=== PATIENT | male | born 1955 | race Caucasian/White ===

== ENCOUNTER 2025-03-23 20:00 | Observation (INO) ==
[2025-03-23 20:34] LABS: Hematocrit (blood only) 44.9 % (42.0-52.0); Hemoglobin 15.3 g/dl (14.0-18.0); Immature Granulocytes # (auto) 0.04 K/uL (0.01-0.20); Immature Granulocytes % (auto) 0.4 %; Mean Corpuscular Hemoglobin 30.4 pg (25.0-34.0); Mean Corpuscular Volume 89.1 fL (80.0-100.0); Platelet Count 283 K/uL (130-400); RDW Standard Deviation 41.7 fL (36.4-46.3); Red Blood Count 5.04 M/uL (4.70-6.10); White Blood Count 10.08 K/ul (4.8-10.8)
[2025-03-23 20:52] LABS: Alanine Aminotransferase 52.0 U/L (7-52); Albumin Globulin Ratio 1.4 (0.9-2); Alkaline Phosphatase 69.0 U/L (34-104); Anion Gap 8.0 (3-11); Bilirubin,Total 0.3 mg/dl (0.2-1.0); Blood Urea Nitrogen 26.0 mg/dl (6-23); Calcium 9.6 mg/dl (8.6-10.3); Carbon Dioxide 28.0 mmol/L (21-32); Chloride 104.0 mmol/L (98-107); Creatinine Clr Calc Pharmacy 61.7 ml/min; Globulin 3.1 gm/dl (2.5-4.0); Glucose 106.0 mg/dl (70-99(Fasting)); Lipase 44.0 U/L (11-82); Potassium 3.6 mmol/L (3.5-5.1); Sodium 140.0 mmol/L (136-145); Total Protein 7.4 gm/dl (6.0-8.3)
--- NOTE | 2025-03-23 20:58 | XRay Report ---
EXAM: X-ray chest one-view portable CLINICAL HISTORY: Chest pain PRIORS: None TECHNIQUE: Frontal view chest FINDINGS: The chest is well-expanded. No airspace consolidation, effusion or congestive changes. Heart size is normal. No pneumothorax. Trachea is patent. Osseous structures demonstrate no acute abnormality. No radiopaque foreign body. IMPRESSION: No plain film evidence of an acute cardiopulmonary process. Electronically signed by Elsa Suarez 03-23-2025 8:58 PM
--- NOTE | 2025-03-23 23:37 | History & Physical Report ---
Date of Service March 23, 2025 Assessment & Plan (1) Chest pain: Plan: Assessment and plan below following discussion of case with ED provider and reviewing patient history/pertinent normal/abnormal diagnostic test results. Chest pain Possibly from uncontrolled HTN Rule out ACS History of CAD status post stent hyperlipidemia, on statin Rx prediabetes OBS PCU Facilitate nighttime amlodipine. Continue a.m. losartan. Add hydralazine to regimen if uncontrolled. (Beta-bautista medication held in the past due to bradycardia as per patient.) Follow troponin TTE, cardiology consult re: chest pain, history of CAD N.p.o. in anticipation of ischemic workup Update lipid profile and hemoglobin A1c DVT prophylaxis. Lovenox subcu Full code Patient requesting updates providers. Ms. Luz Marina Fuchs, contact #[phone]. Text document was generated using [employer] voice recognition software. It may contain grammatical or spelling errors. Kindly contact undersigned for clarification of any documentation item in question. History of Present Illness Chief Complaint: Chest pain Primary Care Provider: Dr. De La Cruz from [place], [place] (PCP) Dr. Ma from [place], [place] (account strategist) History obtained from patient, family, and records. Medical history significant for CAD status post stents x 7 (first 2015, most recent 2019), hypertension, hyperlipidemia, prediabetes. Patient relocated back to [place] from [place] last July,. Patient yet to establish care with local providers. Last night, patient experienced left shoulder pain going to his chest with some SOB. No cough symptoms. Different from heart attack. No headache symptoms. Compliant with home medications. No unusual stress. Patient does not check blood pressure at home. No concerns on recent outpatient follow-up with [place] account strategist this year. SBP 190s upon arrival at the ER. Medical History as above Surgical History : Appendectomy Family History : Heart disease Personal/Social history : Non-smoker, no EtOH intake Allergies Allergy/AdvReac Type Severity Reaction Status Date / Time No Known Allergies Allergy Unverified 03/23/25 22:09 Home Medications Medication Instructions Recorded Confirmed Type amlodipine 10 mg tablet 10 mg PO QPM 03/23/25 03/23/25 History aspirin 81 mg tablet 81 mg PO QPM 03/23/25 03/23/25 History atorvastatin 80 mg tablet 80 mg PO QPM 03/23/25 03/23/25 History hydrochlorothiazide 25 mg tablet 25 mg PO BID 03/23/25 03/23/25 History losartan 100 mg tablet 100 mg PO QAM 03/23/25 03/23/25 History Past Med/Surg History Problem List (Updated 03/24/25 @ 11:13 by Ady Ramos DO) Dyslipidemia HTN (hypertension) Chest pain (Acute) Social History Smoking Status: Former smoker Smoking End Date: 20 years ago; Second Hand Exposure: No; Hx Alcohol Use: Yes Alcohol type: hard liquor Hx Substance Use: No Preferred Language: Icelandic Communication Ability: Effective Disease Education Specialist Required: No Beliefs That Will Affect Care: None Current Living Situation: Spouse Current Living Situation Comment: wifes at home with Feels Safe at Home: Yes Safety Concerns: Feels Safe At This Time Assistive Devices: Denture - Upper, Denture - Lower and Glasses Review of Systems Review of Systems: As per HPI, all other systems reviewed and negative Physical Exam Physical Exam: GENERAL: Comfortable, pleasant, morbidly obese, no respiratory distress SKIN: Normal color, warm HEENT: [place] palpebral conjunctivae, no ptosis, moist buccal mucosa NECK : Supple, short neck, no tenderness CHEST : CTA, no tenderness HEART : RRR, no obvious murmurs ABDOMEN: Some distention, nontender EXTREMITIES : Minimal LE swelling, no LE tenderness, palpable pulses, no other conspicuous deformities noted NEUROLOGIC : Coherent, no facial asymmetry, no other gross focality Results & Data Results & Data Vital Signs (Past 12 Hours) Vital Signs Pulse Pulse Resp BP BP Pulse Ox O2 Del Method 03/23/25 23:33 65 16 170/82 H 96 03/23/25 22:00 63 16 156/85 H 94 Room Air 03/23/25 21:01 68 H 165/96 H 96 Room Air 03/23/25 20:25 74 16 95 Room Air 03/23/25 20:16 16 196/94 H 95 Room Air 03/23/25 20:16 95 Room Air 03/23/25 20:16 79 18 196/94 H 95 Room Air 03/23/25 20:14 74 Laboratory Results Laboratory Results WBC 10.08 K/ul (4.8-10.8) 03/23/25 20:16 RBC 5.04 M/uL (4.70-6.10) 03/23/25 20:16 Hgb 15.3 g/dl (14.0-18.0) 03/23/25 20:16 Hct 44.9 % (42.0-52.0) 03/23/25 20:16 MCV 89.1 fL (80.0-100.0) 03/23/25 20:16 MCH 30.4 pg (25.0-34.0) 03/23/25 20:16 MCHC 34.1 g/dL (32.0-36.0) 03/23/25 20:16 RDW Std Deviation 41.7 fL (36.4-46.3) 03/23/25 20:16 RDW Coeff of John 12.8 % (11.5-14.5) 03/23/25 20:16 Plt Count 283 K/uL (130-400) 03/23/25 20:16 MPV 10.0 fL (9.4-12.4) 03/23/25 20:16 Immature Gran % (Auto) 0.4 % 03/23/25 20:16 Neut % (Auto) 56.0 % 03/23/25 20:16 Lymph % (Auto) 26.4 % 03/23/25 20:16 [place] % (Auto) 14.4 % 03/23/25 20:16 Eos % (Auto) 2.0 % 03/23/25 20:16 Baso % (Auto) 0.8 % 03/23/25 20:16 Neut # (Auto) 5.65 K/uL (1.40-6.50) 03/23/25 20:16 Lymph # (Auto) 2.66 K/uL (1.20-3.40) 03/23/25 20:16 [place] # (Auto) 1.45 K/uL (0.11-0.59) H 03/23/25 20:16 Eos # (Auto) 0.20 K/uL (0.00-0.50) 03/23/25 20:16 Baso # (Auto) 0.08 K/uL (0.00-0.20) 03/23/25 20:16 Immature Gran # (Auto) 0.04 K/uL (0.01-0.20) 03/23/25 20:16 Sodium 140 mmol/L (136-145) 03/23/25 20:16 Potassium 3.6 mmol/L (3.5-5.1) 03/23/25 20:16 Chloride 104 mmol/L (98-107) 03/23/25 20:16 Carbon Dioxide 28 mmol/L (21-32) 03/23/25 20:16 Anion Gap 8 (3-11) 03/23/25 20:16 BUN 26 mg/dl (6-23) H 03/23/25 20:16 Creatinine 1.35 mg/dl (0.6-1.4) 03/23/25 20:16 Est Cr Clr Drug Dosing 61.7 ml/min 03/23/25 20:16 eGFR 56.13 03/23/25 20:16 BUN/Creatinine Ratio 19.3 (10-20) 03/23/25 20:16 Glucose 106 mg/dl (70-99(Fasting)) H 03/23/25 20:16 Calcium 9.6 mg/dl (8.6-10.3) 03/23/25 20:16 Total Bilirubin 0.3 mg/dl (0.2-1.0) 03/23/25 20:16 AST 26 U/L (13-39) 03/23/25 20:16 ALT 52 U/L (7-52) 03/23/25 20:16 Alkaline Phosphatase 69 U/L (34-104) 03/23/25 20:16 Troponin I High Sens 9.0 pg/ml (0-20) 03/23/25 20:16 Total Protein 7.4 gm/dl (6.0-8.3) 03/23/25 20:16 Albumin 4.3 gm/dl (3.4-5.0) 03/23/25 20:16 Globulin 3.1 gm/dl (2.5-4.0) 03/23/25 20:16 Albumin/Globulin Ratio 1.4 (0.9-2) 03/23/25 20:16 Lipase 44 U/L (11-82) 03/23/25 20:16 Impressions Chest X-Ray 03/23/25 20:09 EXAM: X-ray chest one-view portable CLINICAL HISTORY: Chest pain PRIORS: None TECHNIQUE: Frontal view chest FINDINGS: The chest is well-expanded. No airspace consolidation, effusion or congestive changes. Heart size is normal. No pneumothorax. Trachea is patent. Osseous structures demonstrate no acute abnormality. No radiopaque foreign body. IMPRESSION: No plain film evidence of an acute cardiopulmonary process. Electronically signed by Elsa Suarez 03-23-2025 8:58 PM Diagnostic Findings EKG as per my interpretation :Rate 70, NSR, normal axis, LVH, T wave abnormaliti es inferior leads, PVCs (1) Chest pain Chest pain type: chest pain due to myocardial ischemia Ischemic chest pain type: unspecified angina pectoris type Qualified Code(s): I25.9 - Chronic ischemic heart disease, unspecified
[2025-03-23] MEDS ORDERED: NITROGLYCERIN SL 0.4 MG/TAB TAB SL PRN (23:40)
[2025-03-23] MEDS ORDERED: LORazepam 0.5 MG TAB PO PRN (23:40)
[2025-03-23] MEDS ORDERED: PROMETHAZINE 6.25 MG/50.25 ML BAG IV PRN (23:40)
[2025-03-23] MEDS ORDERED: MoRPHine SULFATE 4 MG/ML 1 ML CARP\\VIAL IV PRN (23:40)
--- NOTE | 2025-03-23 23:45 | Emergency Department Note ---
Impression & Plan Chest pain ED Provider Note NAME: AIME JOHNSTON AGE: 69 SEX: M : 1955 ARRIVES VIA: Walk-In INFORMANT: Patient, ED PROVIDER(S): Hector Prakash MD CHIEF COMPLAINT: Chest pain HPI: This is a 68-year-old male presenting for chest pain. For chest pain. Patient notes he back pain for the past 1 week. Over the past 1 day has progressed to back and chest pain at this time. Today the pain worsened in severity as well as going down his left arm. He states that this now reminded him of his previous STEMI. He has had 7 total stents in his heart. He had 1 heart attack and multiple visits to cardiology where they kept finding new lesions. He reports no fainting, leg pain, swelling, arm pain. No nausea, vomiting. No diaphoresis. ROS: See above HPI for pertinent positives & negatives. A total of 10 systems reviewed and were otherwise negative. PAST MEDICAL HISTORY: See Below PAST SURGICAL HISTORY: See Below FAMILY HISTORY: See Below SOCIAL HISTORY: See Below HOME MEDICATIONS: See Below ALLERGIES: See Below VITALS: See Below PHYSICAL EXAMINATION: General: resting comfortably in no acute distress Head: Normocephalic and atraumatic Eyes: Normal inspection, extraocular muscles intact Ear, nose, throat: Normal external exam Neck: Normal range of motion Respiratory: lungs clear to auscultation bilaterally Cardiovascular: Regular rate/rhythm, no murmur GI: soft, nontender, no guarding or rebound Extremities: nontender, moves all extremities Neuro: The patient awake and alert, appropriately conversive, no focal deficits, symmetric faces Skin: Warm, dry, and intact MEDICAL DECISION MAKING: This is a 69-year-old male presenting for chest/back pain. He has having cardiac history and patient tells me his pain feels similar to previous heart conditions. Will do screening ACS workup. No hypoxia or tachycardia at this time. Low concern for PE clinically. - ECG independently interpreted by me with normal sinus rhythm, occasional PVC, rate of 69, normal AL, normal QRS, normal QTc, no ST segment elevations consistent with STEMI criteria - Chest Xray independently interpreted by me showing no pneumothorax, focal opacity, or pleural effusions. - Bloodwork is reviewed showing no significant leukocytosis, anemia, electrolyte or creatinine abnormality. Negative troponin - With patient's continued chest pain, will admit the patient at this time for high risk chest pain. Care discussed with Dr. Catheirne for admission Differential diagnosis: ACS, PE, muscle skeletal injury, costochondritis, pneumonia Independent History obtained from: Diagnostics interpreted by me: ECG: See above Cardiac Monitoring: An order was placed for continuous cardiac monitoring. The monitor shows a rate of 61 with sinus Past Med/Surg History Problem List (Updated 03/24/25 @ 00:58 by Hector Prakash MD) Chest pain (Acute) Social History Smoking Status: Never smoker Feels Safe at Home: Yes Allergies Allergies Allergy/AdvReac Type Severity Reaction Status Date / Time No Known Allergies Allergy Unverified 03/23/25 22:09 Home Meds Home Medications Medication Instructions Recorded Confirmed amlodipine 10 mg tablet 10 mg PO QPM 03/23/25 03/23/25 aspirin 81 mg tablet 81 mg PO QPM 03/23/25 03/23/25 atorvastatin 80 mg tablet 80 mg PO QPM 03/23/25 03/23/25 hydrochlorothiazide 25 mg tablet 25 mg PO BID 03/23/25 03/23/25 losartan 100 mg tablet 100 mg PO QAM 03/23/25 03/23/25 Results & Data (ED) Vital Signs Vital Signs - 24 hr 03/23/25 20:14 03/23/25 20:16 03/23/25 20:16 Pulse Rate 74 79 Pulse Rate [Right Finger] Respiratory Rate 18 Respiratory Effort / Characteristics Non-Labored Respiratory Depth Normal Respiratory Pattern Regular Blood Pressure 196/94 H Blood Pressure [Right Arm] Blood Pressure Mean 128 Blood Pressure Mean [Right Arm] Pulse Oximetry 95 95 Oxygen Delivery Method Room Air Room Air Sepsis Recent Fever Within 48 Hours No Sepsis New/Unexplained Change in Mental Status No Sepsis Action Taken by Nursing No Action Required 03/23/25 20:16 03/23/25 20:25 03/23/25 21:01 Pulse Rate 74 Pulse Rate [Right Finger] Respiratory Rate 16 16 68 H Respiratory Effort / Characteristics Respiratory Depth Normal Respiratory Pattern Blood Pressure Blood Pressure [Right Arm] 196/94 H 165/96 H Blood Pressure Mean Blood Pressure Mean [Right Arm] 128 119 Pulse Oximetry 95 95 96 Oxygen Delivery Method Room Air Room Air Room Air Sepsis Recent Fever Within 48 Hours Sepsis New/Unexplained Change in Mental Status Sepsis Action Taken by Nursing 03/23/25 22:00 03/23/25 23:33 03/24/25 00:53 Pulse Rate Pulse Rate [Right Finger] 63 65 61 Respiratory Rate 16 16 16 Respiratory Effort / Characteristics Respiratory Depth Normal Normal Respiratory Pattern Blood Pressure Blood Pressure [Right Arm] 156/85 H 170/82 H 172/86 H Blood Pressure Mean Blood Pressure Mean [Right Arm] 108 111 114 Pulse Oximetry 94 96 95 Oxygen Delivery Method Room Air Room Air Sepsis Recent Fever Within 48 Hours Sepsis New/Unexplained Change in Mental Status Sepsis Action Taken by Nursing Laboratory Data 03/23/25 20:16 03/23/25 20:16 Lab Results 03/23/25 03/23/25 Range/Units 20:16 23:00 WBC 10.08 (4.8-10.8) K/ul RBC 5.04 (4.70-6.10) M/uL Hgb 15.3 (14.0-18.0) g/dl Hct 44.9 (42.0-52.0) % MCV 89.1 (80.0-100.0) fL MCH 30.4 (25.0-34.0) pg MCHC 34.1 (32.0-36.0) g/dL RDW Std Deviation 41.7 (36.4-46.3) fL RDW Coeff of John 12.8 (11.5-14.5) % Plt Count 283 (130-400) K/uL MPV 10.0 (9.4-12.4) fL Immature Gran % (Auto) 0.4 % Neut % (Auto) 56.0 % Lymph % (Auto) 26.4 % [place] % (Auto) 14.4 % Eos % (Auto) 2.0 % Baso % (Auto) 0.8 % Neut # (Auto) 5.65 (1.40-6.50) K/uL Lymph # (Auto) 2.66 (1.20-3.40) K/uL [place] # (Auto) 1.45 H (0.11-0.59) K/uL Eos # (Auto) 0.20 (0.00-0.50) K/uL Baso # (Auto) 0.08 (0.00-0.20) K/uL Immature Gran # (Auto) 0.04 (0.01-0.20) K/uL APTT 25 (21-31) Seconds PTT Ratio 0.9 Sodium 140 (136-145) mmol/L Potassium 3.6 (3.5-5.1) mmol/L Chloride 104 (98-107) mmol/L Carbon Dioxide 28 (21-32) mmol/L Anion Gap 8 (3-11) BUN 26 H (6-23) mg/dl Creatinine 1.35 (0.6-1.4) mg/dl Est Cr Clr Drug Dosing 61.7 ml/min eGFR 56.13 BUN/Creatinine Ratio 19.3 (10-20) Glucose 106 H (70-99(Fasting)) mg/dl Calcium 9.6 (8.6-10.3) mg/dl Total Bilirubin 0.3 (0.2-1.0) mg/dl AST 26 (13-39) U/L ALT 52 (7-52) U/L Alkaline Phosphatase 69 (34-104) U/L Troponin I High Sens 9.0 10.3 (0-20) pg/ml Total Protein 7.4 (6.0-8.3) gm/dl Albumin 4.3 (3.4-5.0) gm/dl Globulin 3.1 (2.5-4.0) gm/dl Albumin/Globulin Ratio 1.4 (0.9-2) Lipase 44 (11-82) U/L Administered Medications Atorvastatin Calcium (Atorvastatin 40 Mg Tab) 80 mg PO QPM PHILIPP Stop: 04/22/25 23:39 Last Admin: 03/24/25 00:50 Dose: 80 mg Documented By: TRINITY Discontinued Medications Amlodipine Besylate (Amlodipine Besylate 5 Mg Tab) 10 mg PO NOW STA Stop: 03/23/25 23:46 Last Admin: 03/24/25 00:51 Dose: 10 mg Documented By: TRINITY Imaging Data Radiologist's Impression: Chest X-Ray 03/23/25 20:09 EXAM: X-ray chest one-view portable CLINICAL HISTORY: Chest pain PRIORS: None TECHNIQUE: Frontal view chest FINDINGS: The chest is well-expanded. No airspace consolidation, effusion or congestive changes. Heart size is normal. No pneumothorax. Trachea is patent. Osseous structures demonstrate no acute abnormality. No radiopaque foreign body. IMPRESSION: No plain film evidence of an acute cardiopulmonary process. Electronically signed by Elsa Suarez 03-23-2025 8:58 PM Discharge Plan Visit Data Chief Complaint: Chest Pain Stated Complaint: CHEST PAIN/L ARM PAIN ED Provider: Hector Prakash Discharge Problem: Chest pain Patient Disposition: Admitted As Inpatient Condition: Fair Forms Stand Alone Forms: [facility] Prescriptions Prescriptions: No Action atorvastatin 80 mg tablet 80 mg PO QPM amlodipine 10 mg tablet 10 mg PO QPM hydrochlorothiazide 25 mg tablet 25 mg PO BID Rx Instructions: morning and afternoon times losartan 100 mg tablet 100 mg PO QAM aspirin 81 mg Tablet 81 mg PO QPM Referrals Referrals: PCP,NO [Primary Care Provider] - Discharge Problem: Chest pain Qualifiers: Chest pain type: chest pain due to myocardial ischemia Ischemic chest pain type: unspecified angina pectoris type Qualified Code(s): I25.9 - Chronic ischemic heart disease, unspecified
[2025-03-24 00:09] LABS: Partial Thromboplastin Time 25 Seconds (21-31)
[2025-03-24] MEDS: ATORVASTATIN 40 MG TAB PO SCH (00:50)
[2025-03-24 00:57] LABS: Magnesium 2.3 mg/dl (1.7-2.4)
[2025-03-24] MEDS: LACTATED RINGER'S 1,000 ML IV ONE (02:08)
[2025-03-24 05:46] LABS: Hematocrit (blood only) 42.3 % (42.0-52.0); Hemoglobin 14.3 g/dl (14.0-18.0); Immature Granulocytes # (auto) 0.04 K/uL (0.01-0.20); Immature Granulocytes % (auto) 0.5 %; Mean Corpuscular Hemoglobin 30.1 pg (25.0-34.0); Mean Corpuscular Volume 89.1 fL (80.0-100.0); Platelet Count 253 K/uL (130-400); RDW Standard Deviation 42.1 fL (36.4-46.3); Red Blood Count 4.75 M/uL (4.70-6.10); White Blood Count 8.14 K/ul (4.8-10.8)
[2025-03-24 05:59] LABS: Anion Gap 6.0 (3-11); Blood Urea Nitrogen 21.0 mg/dl (6-23); Calcium 8.8 mg/dl (8.6-10.3); Carbon Dioxide 29.0 mmol/L (21-32); Chloride 106.0 mmol/L (98-107); Cholesterol 124.0 mg/dl (0-200); Creatinine Clr Calc Pharmacy 74.0 ml/min; Glucose 108.0 mg/dl (70-99(Fasting)); HDL Cholesterol 28.0 mg/dl; Potassium 3.6 mmol/L (3.5-5.1); Sodium 141.0 mmol/L (136-145); Triglycerides 134.0 mg/dl (0-150)
[2025-03-24 07:11] VITALS: RESP 18
[2025-03-24 07:39] LABS: Hemoglobin A1C 6.3 % (4.5-5.6)
[2025-03-24] MEDS: LOSARTAN POTASSIUM 50 MG TAB PO STA (07:57)
[2025-03-24] MEDS: hydrALAZINE 10 MG TAB PO SCH (08:04)
--- NOTE | 2025-03-24 08:27 | Electrocardiogram Report ---
Test Reason : Blood Pressure : */* mmHG Vent. Rate : 69 BPM Atrial Rate : 69 BPM P-R Int : 186 ms QRS Dur : 94 ms QT Int : 370 ms P-R-T Axes : 16 -16 3 degrees QTcB Int : 396 ms Sinus rhythm with occasional Premature ventricular complexes Minimal voltage criteria for LVH, may be normal variant ( R in aVL ) Borderline ECG No previous ECGs available Confirmed by Sally Valladares (Kathy) on 03/24/2025 8:27:22 AM Referred By: Confirmed By: Sally Valladares
[2025-03-24] MEDS ORDERED: LOSARTAN POTASSIUM 50 MG TAB PO SCH (09:00)
[2025-03-24] MEDS: ENOXAPARIN INJ 40 MG/0.4 ML SYR SQ SCH (09:58)
--- NOTE | 2025-03-24 11:16 | Cardiology Consultation ---
Date of Consultation March 24, 2025 Assessment & Plan (1) Chest pain: * Patient with chest discomfort that is somewhat atypical in character for angina. Duration has been over the last week, serial high sensitive troponins overnight last night are within normal limits which is reassuring. Echocardiogram without regional wall motion abnormalities. * Continue aspirin 81 mg daily. Patient states he completed a previous course of Brilinta. * Proceed with pharmacologic nuclear stress test. Patient does not believe he can walk sufficiently on the treadmill to allow for an exercise based test. (2) HTN (hypertension): * Prior to hospital treatment hydrochlorothiazide currently on hold * Continue prior to arrival treatment with amlodipine 10 mg daily * Continue losartan 100 mg daily * Agree with addition of hydralazine 10 mg p.o. twice daily for now * Hold off on beta-bautista as heart rate is relatively low at baseline. (3) Dyslipidemia: * LDL cholesterol this morning is 69 mg/dL * Continue atorvastatin 80 mg daily I spent a total of 80 minutes on the date of service in preparation, delivery, and documentation of the care provided to this patient, excluding any time spent in the performance of separately billed services. History of Present Illness Attending Physician: Rm Warner MD History of Present Illness Danial Fuchs is a 69 year old male seen in cardiology consultation per the request of Dr Nicholson for the evaluation of chest discomfort. Patient's spouse, Nelly Bush", at the bedside during my assessment. Patient describes that a week ago he had onset of pain in his back between his shoulder blades. It would come on at rest as well as with exertion. Yesterday/last night it radiated around his left axilla to the left chest and shoulder. He was very concerned that this could be angina and therefore sought emergency room treatment. He does not believe that the symptoms are reminiscent of his previous angina that prompted his previous heart stents which was a midline chest pressure radiating down both arms. During my assessment the patient was comfortable and pain-free. Blood pressure was elevated on arrival with initial reading of 196/94, after his morning medications this morning it was down to 159/82. Telemetry reveals sinus rhythm in the 60s. Patient previously received his cardiology care in [facility] where he used to work. He moved here 2 years ago and has yet to establish locally with cardiology or primary care provider. Cardiac History: Complex coronary heart disease for which she historically has followed with Dr. Antoinette Ma of [facility] in [facility], office phone #[phone] Patient having initially presented with myocardial infarction (details unavailable) in 2008 receiving 2 Taxus stents to the right coronary artery Patient with additional resolute drug-eluting stent in January, (unknown vessel) 2 drug-eluting stents to the right coronary artery July, 2 additional drug-eluting stents 10/01/2018 (unknown vessel, but the patient thinks that perhaps this was not the right groin artery). HTN Dyslipidemia Allergies Allergy/AdvReac Type Severity Reaction Status Date / Time No Known Allergies Allergy Unverified 03/23/25 22:09 Home Medications Medication Instructions Recorded Confirmed Type amlodipine 10 mg tablet 10 mg PO QPM 03/23/25 03/23/25 History aspirin 81 mg tablet 81 mg PO QPM 03/23/25 03/23/25 History atorvastatin 80 mg tablet 80 mg PO QPM 03/23/25 03/23/25 History hydrochlorothiazide 25 mg tablet 25 mg PO BID 03/23/25 03/23/25 History losartan 100 mg tablet 100 mg PO QAM 03/23/25 03/23/25 History Patient History Social History Smoking Status: Former smoker Smoking End Date: 20 years ago; Second Hand Exposure: No; Hx Alcohol Use: Yes Alcohol type: hard liquor Hx Substance Use: No Preferred Language: Libyan Communication Ability: Effective Negative Checker Required: No Beliefs That Will Affect Care: None Current Living Situation: Spouse Current Living Situation Comment: wifes at home with Feels Safe at Home: Yes Safety Concerns: Feels Safe At This Time Assistive Devices: Denture - Upper, Denture - Lower and Glasses Review of Systems Review of Systems: All systems reviewed & are unremarkable except as noted in HPI & below Physical Exam Physical Exam: General: no acute distress and stated age Eyes: conjunctiva are pink and non-injected, sclera clear Neck: normal jugular venous pulse, no hepatojugular reflux Chest: normal shape and normal respiratory effort Lungs: clear to auscultation and percussion Cardiac Exam: - regular heart sounds, no murmurs, rubs, or gallops, no jugular venous distention Abdomen: abdomen soft, non-tender, no abnormal masses and no hepatosplenomegaly Extremities: no edema and no cyanosis Neuro:awake, conversant, follows commands, no focal motor deficits Psych: appropriate affect and insight. Results & Data Vital Signs (Past 12 Hours) Vital Signs Temp Pulse Pulse Pulse Resp BP BP 03/24/25 09:56 60 159/82 H 03/24/25 07:10 36.5 C 61 18 03/24/25 05:18 73 03/24/25 02:20 03/24/25 02:13 36.6 C 60 16 03/24/25 02:00 62 03/24/25 01:40 64 16 172/86 H 03/24/25 00:53 61 16 03/23/25 23:33 65 16 BP Pulse Ox O2 Del Method 03/24/25 09:56 03/24/25 07:10 189/70 H 95 Room Air 03/24/25 05:18 166/65 H 03/24/25 02:20 Room Air 03/24/25 02:13 179/92 H 96 Room Air 03/24/25 02:00 03/24/25 01:40 95 Room Air 03/24/25 00:53 172/86 H 95 Room Air 03/23/25 23:33 170/82 H 96 Laboratory Results Cardiac Enzymes 03/23/25 03/23/25 03/24/25 Range/Units 20:16 23:00 05:19 AST 26 (13-39) U/L Troponin I High Sens 9.0 10.3 12.2 (0-20) pg/ml Coagulation 03/23/25 Range/Units 20:16 APTT 25 (21-31) Seconds Lipids 03/24/25 Range/Units 05:19 Triglycerides 134 (0-150) mg/dl Cholesterol 124 (0-200) mg/dl HDL Cholesterol 28 mg/dl Cholesterol/HDL Ratio 4.4 (0-5) CBC 03/23/25 03/24/25 Range/Units 20:16 05:19 WBC 10.08 8.14 (4.8-10.8) K/ul RBC 5.04 4.75 (4.70-6.10) M/uL Hgb 15.3 14.3 (14.0-18.0) g/dl Hct 44.9 42.3 (42.0-52.0) % Plt Count 283 253 (130-400) K/uL Neut # (Auto) 5.65 4.46 (1.40-6.50) K/uL Lymph # (Auto) 2.66 2.34 (1.20-3.40) K/uL [place] # (Auto) 1.45 H 1.04 H (0.11-0.59) K/uL Eos # (Auto) 0.20 0.20 (0.00-0.50) K/uL Baso # (Auto) 0.08 0.06 (0.00-0.20) K/uL Comprehensive Metabolic Panel 03/23/25 03/24/25 Range/Units 20:16 05:19 Sodium 140 141 (136-145) mmol/L Potassium 3.6 3.6 (3.5-5.1) mmol/L Chloride 104 106 (98-107) mmol/L Carbon Dioxide 28 29 (21-32) mmol/L BUN 26 H 21 (6-23) mg/dl Creatinine 1.35 1.12 (0.6-1.4) mg/dl Glucose 106 H 108 H (70-99(Fasting)) mg/dl Calcium 9.6 8.8 (8.6-10.3) mg/dl AST 26 (13-39) U/L ALT 52 (7-52) U/L Alkaline Phosphatase 69 (34-104) U/L Total Protein 7.4 (6.0-8.3) gm/dl Albumin 4.3 (3.4-5.0) gm/dl Intake and Output 03/23/25 03/24/25 03/24/25 22:59 06:59 14:59 Other: Other Intake Source NPO # Unmeasured Voids 1 Weight 118 kg 117 kg Weight Measurement Method Built in [facility] Built in [facility] Diagnostic Findings Summary of transthoracic echocardiogram performed today 03/24/2025 and interpret independently: No regional wall motion abnormalities noted. Left Ventricular Ejection Fraction = 55-60%. The right ventricle is normal in size and function. Trace aortic regurgitation. Grade I diastolic dysfunction, (abnormal relaxation pattern). Aortic root is mildly dilated, diameter 3.9 cm. The proximal ascending aorta is not visualized adequately enough to allow for measurement. EKG performed 03/23/2025 and interpreted dependently: Sinus rhythm at 69 bpm with occasional PVCs, no significant repolarization abnormalities. Left ventricular hypertrophy suggested by voltage criteria. Coding Level of Care Code 23178 IN/OBS CONSULT LVL 5,80M Diagnoses Chest pain I25.9 Chest pain type: chest pain due to myocardial ischemia Ischemic chest pain type: unspecified angina pectoris type HTN (hypertension) I10 Dyslipidemia E78.5 (1) Chest pain Chest pain type: chest pain due to myocardial ischemia Ischemic chest pain type: unspecified angina pectoris type Qualified Code(s): I25.9 - Chronic ischemic heart disease, unspecified
[2025-03-24 14:56] VITALS: BP 166/88; TEMP 97.7; O2SAT 96
--- NOTE | 2025-03-24 16:44 | Hospitalist Progress Note ---
Date of Service March 24, 2025 Assessment & Plan (1) Chest pain: Plan: Chest pain, ro ACS Possibly from uncontrolled HTN: (Beta-bautista medication held in the past due to bradycardia as per patient.) History of CAD status post stent Trops x 3 neg, EKG w/ no acute ST-T changes. ECHO w/ EF of 55-60%, Gr I diastolic dysfxn, no RWMA. Continue home losartan, amlodipine. C/w hydralazine. HCTZ on hold. cw aspirin and statin. Cards on board, stress test today. hyperlipidemia, on statin Rx prediabetes: A1c 6.3, pt and his aware. they are working on losing weight and have been successful so far. A1c in 3 months. DVT prophylaxis. Lovenox subcu Full code Patient Ms. Luz Marina Fuchs, contact #[phone]. Updated at bedside. Text document was generated using [employer] voice recognition software. It may contain grammatical or spelling errors. Kindly contact undersigned for clarification of any documentation item in question. Admission and Anticipated Discharge Date Admission Date: March 23, 2025 Subjective Patient was seen and examined at bedside. Patient was sitting up in chair, on room air, NAD, resting comfortably. Patient's at bedside who was also updated on plan of care. Patient denies further chest pain. Patient denies flulike illness or sore throat or cough. Physical Exam Physical Exam: GENERAL: Comfortable, pleasant, morbidly obese, no respiratory distress SKIN: Normal color, warm HEENT: [place] palpebral conjunctivae, no ptosis, moist buccal mucosa NECK : Supple, short neck, no tenderness CHEST : CTA, no tenderness HEART : RRR, no obvious murmurs ABDOMEN: Some distention, nontender EXTREMITIES : Minimal LE swelling, no LE tenderness, palpable pulses, no other conspicuous deformities noted NEUROLOGIC : Coherent, no facial asymmetry, no other gross focality Results & Data Results & Data Vital Signs (Past 12 Hours) Vital Signs Temp Pulse Pulse Resp BP BP Pulse Ox 03/24/25 14:54 36.5 C 58 L 18 166/88 H 96 03/24/25 12:15 36.6 C 52 L 18 147/78 H 97 03/24/25 09:56 60 159/82 H 03/24/25 07:10 36.5 C 61 18 189/70 H 95 03/24/25 05:18 73 166/65 H O2 Del Method 03/24/25 14:54 Room Air 03/24/25 12:15 Room Air 03/24/25 09:56 03/24/25 07:10 Room Air 03/24/25 05:18 (1) Chest pain Chest pain type: chest pain due to myocardial ischemia Ischemic chest pain type: unspecified angina pectoris type Qualified Code(s): I25.9 - Chronic ischemic heart disease, unspecified
[2025-03-24] MEDS: REGADENOSON 0.4 MG/5 ML SYR IV ONE (17:13)
--- NOTE | 2025-03-24 18:23 | Communication Note ---
Date of Service: March 24, 2025 Nuclear stress is normal. Continue ASA, atorvastatin 80 mg daily. Continue amlodipine 10 mg daily, losartan 100 mg daily. Continue HCTZ 25 mg once daily. Patient is not taking it two times per day. Add hydralazine 10 mg PO BID. Pt did not tolerate spironolactone previously. Perhaps due to high potassium. Follow up with [facility]. Pt would like short term Rx to [facility],
--- NOTE | 2025-03-24 18:33 | Myocardial Perfusion Study ---
Date of Service March 24, 2025 Myocardial Perfusion Study [facility] Myocardial Perfusion Study Report Procedure: 1. Myocardial perfusion study performed in multiple views/images 2. Lexiscan pharmacologic stress ECG Indications: 1. Chest pain 2. Hypertension 3. History of coronary heart disease multiple percutaneous coronary inventions Ordering physician: Aura Ramos DO Procedural details: For the stress portion of the study, Lexiscan 0.4 mg was intravenously administered followed by a saline flush. This was followed by 32 mCi of technetium 99m Cardiolite, injected at 1325 on 03/24/25. 30 minutes following the injection, imaging of the heart was performed in multiple projections. For the rest portion of the study, 10.2 mCi technetium 99m Cardiolite was injected intravenously at 11:30 AM on 03/24/2025. 1 hour following the injection, imaging of the heart was performed in the same projections. Lexiscan stress ECG: Resting ECG demonstrated: Sinus bradycardia at [address] segments. Maximum heart rate: 90 bpm Maximal, age-predicted heart rate: 60% Resting blood pressure: 144/82 mmHg Maximum blood pressure: 162/[address] changes: The stress ECG response was negative for ischemia Arrhythmia: None Symptoms: No symptoms suggestive angina were reported with the test Findings: Rotating raw imaging demonstrated no significant lung uptake. There is no significant motion artifact. Heart size appeared normal. Myocardial perfusion demonstrated normal stress and resting perfusion. Ejection fraction: 57% Wall motion: Normal No significant transient ischemic dilation. Impression: 1. Normal pharmacologic myocardial perfusion imaging study without evidence of scar or inducible ischemia. 2. Normal left ventricular ejection fraction, 57% by the gated SPECT technique. Ady Ramos DO
[2025-03-24] MEDS ORDERED: hydrALAZINE 10 MG TAB PO SCH (18:45)
--- NOTE | 2025-03-24 18:47 | Discharge Summary ---
Date of Service March 24, 2025 Admission HPI Per Admitting Provider History obtained from patient, family, and records. Medical history significant for CAD status post stents x 7 (first 2015, most recent 2019), hypertension, hyperlipidemia, prediabetes. Patient relocated back to [place] from [place] last July,. Patient yet to establish care with local providers. Last night, patient experienced left shoulder pain going to his chest with some SOB. No cough symptoms. Different from heart attack. No headache symptoms. Compliant with home medications. No unusual stress. Patient does not check blood pressure at home. No concerns on recent outpatient follow-up with [place] [facility] [employer] this year. SBP 190s upon arrival at the ER. Medical History as above Surgical History : Appendectomy Family History : Heart disease Personal/Social history : Non-smoker, no EtOH intake Admission Exam Per Admitting Provider GENERAL: Comfortable, pleasant, morbidly obese, no respiratory distress SKIN: Normal color, warm HEENT: [place] palpebral conjunctivae, no ptosis, moist buccal mucosa NECK : Supple, short neck, no tenderness CHEST : CTA, no tenderness HEART : RRR, no obvious murmurs ABDOMEN: Some distention, nontender EXTREMITIES : Minimal LE swelling, no LE tenderness, palpable pulses, no other conspicuous deformities noted NEUROLOGIC : Coherent, no facial asymmetry, no other gross focality Principal Diagnosis CP ro ACS uncontroled BP Discharge Exam GENERAL: Comfortable, pleasant, morbidly obese, no respiratory distress SKIN: Normal color, warm HEENT: [place] palpebral conjunctivae, no ptosis, moist buccal mucosa NECK : Supple, short neck, no tenderness CHEST : CTA, no tenderness HEART : RRR, no obvious murmurs ABDOMEN: Some distention, nontender EXTREMITIES : Minimal LE swelling, no LE tenderness, palpable pulses, no other conspicuous deformities noted NEUROLOGIC : Coherent, no facial asymmetry, no other gross focality Discharge Data Allergies Allergy/AdvReac Type Severity Reaction Status Date / Time No Known Allergies Allergy Unverified 03/23/25 22:09 Consultations 03/24/25 06:06 Consult Cardiology Routine Hospital Course (1) Chest pain: Chest pain, ro ACS Possibly from uncontrolled HTN: (Beta-bautista medication held in the past due to bradycardia as per patient.) History of CAD status post stent Trops x 3 neg, EKG w/ no acute ST-T changes. ECHO w/ EF of 55-60%, Gr I diastolic dysfxn, no RWMA. Stress test wnl pt w/ no chest pain Continue home losartan, amlodipine. C/w hydralazine 10 mg bid. HCTZ daily on dc. cw aspirin and statin. f/u w/ cards and pcp on dc. hyperlipidemia, on statin Rx prediabetes: A1c 6.3, pt and his aware. they are working on losing weight and have been successful so far. A1c in 3 months. DVT prophylaxis. Lovenox subcu Full code Patient Ms. Luz Marina Fuchs, contact #[phone]. Updated at bedside. Pt is being discharged w/ following instructions at the point of discharge: Follow-up with your primary care physician within a week time and likely you will need labs CBC/CMP/magnesium/phosphorus. Follow up with your cardiology as outpatient. Your BP meds has been adjusted, continue to measure your BP twice a day, maintain a log to take to your PCP office for ongoing eval/management. Take your meds as prescribed. Please make sure that you are able to get your medications today by calling your pharmacy before you leave the hospital so that your treatment continuity is not broken. Text document was generated using [employer] voice recognition software. It may contain grammatical or spelling errors. Kindly contact undersigned for clarification of any documentation item in q uestion. Home Health Attestation I certify that this patient is under my care and that I, or a physicians administrative assistant coordinator working with me, had a face to-face encounter that meets the home health [id number] encounter requirements with this patient. The encounter with the patient was in whole, or in part, for the following medical condition, which is the primary reason for home health care (list medical condition): I certify that, based on my findings, the following services are medically necessary home health services: My clinical findings support the need for the above services because: Further, I certify that my clinical findings support that this patient is homebound (i.e. absences from home require considerable and taxing effort and are for medical reasons or christian services or infrequently or of short duration when for other reasons) because: Certification for Home Health Services: Based on the above findings, I certify that this patient is confined to the home and needs intermittent [facility] care, physical therapy and/or speech therapy or continues to need occupational therapy. The patient is under my care, and I have initiated the establishment of the plan of care. This patient will be followed by a physician who will periodically review the plan of care. Total Time Total Time Spent Total Time Spent (In Minutes): 50 Discharge Plan Discharge Items Patient Disposition: Home - Self-Care Reason For Visit: CP Discharge Diagnosis: Chest pain, ruled out ACS Uncontrolled ACS Condition on Discharge: Fair Activity: Resume your previous activity Non-emergency contact: Primary Care Provider Call non-emergency contact if: you have any medication questions Follow-up/Referrals: PCP,NO [Primary Care Provider] - Diet: Heart Healthy and Low Sodium (2gm) Addtl Attending Provider Instructions: Follow-up with your primary care physician within a week time and likely you will need labs CBC/CMP/magnesium/phosphorus. Follow up with your cardiology as outpatient. Your BP meds has been adjusted, continue to measure your BP twice a day, maintain a log to take to your PCP office for ongoing eval/management. Take your meds as prescribed. Please make sure that you are able to get your medications today by calling your pharmacy before you leave the hospital so that your treatment continuity is not broken. Pending Studies at Discharge: No Stand-Alone Forms: My [facility] [email or web address], Smoking Cessation Medications and DC Order Prescriptions: New hydralazine 10 mg Tablet 10 mg PO BID Qty: 60 0RF Continued atorvastatin 80 mg tablet 80 mg PO QPM amlodipine 10 mg tablet 10 mg PO QPM losartan 100 mg tablet 100 mg PO QAM aspirin 81 mg Tablet 81 mg PO QPM Changed hydrochlorothiazide 25 mg tablet 25 mg PO DAILY Qty: 30 0RF Rx Instructions: one tablet daily Discharge Orders: Discharge Order (Routine); Ordered 03/24/25 Ordered By: Rm Amador/Other Patient Handouts: Prediabetes, 5 Steps for Eating Healthier Admission Data Admit Date/Time: 03/23/25 23:38 Attending Provider: Rm Warner Admit Provider: Sam Nicholson Primary Care Provider: PCP,NO Other Providers: Amita Branch; Ady Ramos; Med Vickers; Leodan Foster; Galen Magana; Xavier Mccullough; Christal Roth; Adri Chacon; Marii Crowder; Fiona Villavicencio; Amita Baer; Patrick Morse; Kemar Meyers; Linda Tillman; Bonnie Garcia; Marla Medrano; Yolette Young; Jd Gomez; Miroslava Hauser; Jessa Baker; Alan Simmons
[2025-03-24 18:53] VITALS: PULSE 61
[2025-03-24] MEDS ORDERED: ASPIRIN 81 MG ECTAB PO SCH (21:00)
[2025-03-25] MEDS ORDERED: LOSARTAN POTASSIUM 50 MG TAB PO SCH (09:00)
== END 2025-03-24 19:30 | disposition home or self-care (01) ==
LOC: ED 20:00 → 4W 23:38 → INTOOBSV 23:38 → 4W 03-24 01:40